=== PATIENT | female | born 1950 | race Asian ===

== ENCOUNTER 2024-07-30 08:26 | Outpatient (CLI) | payer MEDICARE, BC, SELFPAY ==
--- NOTE | 2024-07-30 09:51 | P.ANES_ITS ---
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
--- NOTE | 2024-07-30 09:51 | W.ANESCHARGE ---
Anesthesia Charges Start Date/Time Anesthesia Start Date: 07/30/24 Anesthesia Start Time: 09:12 Stop Date/Time Anesthesia Stop Date: 07/30/24 Anesthesia Stop Time: 09:50 Summary Extremes of Age - Over 70 or under 1: PARTS ADVISOR Coding CPT Codes CPT Codes: ANES LWR INTST SCR COLSC - 16106 ([id number]) P1 - NORMAL HEALTHY PATIENT, QX - PARTS ADVISOR SVC W/ MED DIRECTION, QK - ORACLE ERP DEVELOPER 2-4 CNCRNT ANES PROC Additional Codes: Summary - Extremes of Age - Over 70 or under 1: PARTS ADVISOR ([id number])
--- NOTE | 2024-07-30 09:52 | P.ANES_ITS ---
Anesthesia Charges Start Date/Time Anesthesia Start Date: 07/30/24 Anesthesia Start Time: 09:12 Stop Date/Time Anesthesia Stop Date: 07/30/24 Anesthesia Stop Time: 09:50 Summary Extremes of Age - Over 70 or under 1: MDA Coding CPT Codes CPT Codes: CARO LWR INTST SCR COLSC - 73455 ([id number]) P1 - NORMAL HEALTHY PATIENT, QK - PARALEGAL SECRETARY 2-4 CNCRNT ANES PROC, QX - ENVIRONMENTAL ENGINEER SVC W/ MD MED DIRECTION Additional Codes: Summary - Extremes of Age - Over 70 or under 1: MDA ([id number])
--- NOTE | 2024-07-30 09:52 | W.ANESCHARGE ---
Anesthesia Charges Start Date/Time Anesthesia Start Date: 07/30/24 Anesthesia Start Time: 09:12 Stop Date/Time Anesthesia Stop Date: 07/30/24 Anesthesia Stop Time: 09:50 Summary Extremes of Age - Over 70 or under 1: MDA Coding CPT Codes CPT Codes: CARO LWR INTST SCR COLSC - 80720 ([id number]) P1 - NORMAL HEALTHY PATIENT, QK - TRANSPORTATION DRIVER 2-4 CNCRNT ANES PROC, QX - PHOTOCOPYING MACHINE OPERATOR SVC W/ MD MED DIRECTION Additional Codes: Summary - Extremes of Age - Over 70 or under 1: MDA ([id number])
== END 2024-07-30 08:27 | disposition home or self-care (01) ==
PROVIDERS: PCP Family Medicine; Visit Provider Internal Medicine
DX: Z12.11 Encounter for screening for malignant neoplasm of colon (principal)
CPT/HCPCS: 00812; 45378; 99100; J2704